=== PATIENT | female | born 1980 | race Caucasian/White ===

== ENCOUNTER → 2017-05-26 | Outpatient (CLI) | payer OTHER, MEDICARE ==
--- NOTE | 2017-05-26 14:00 | XR ---
EXAMINATION TYPE: XR KUB DATE OF EXAM: 05/26/2017 1:35 PM CLINICAL HISTORY: Right-sided kidney stones. TECHNIQUE: Single supine KUB image of the abdomen is obtained. COMPARISON: CT abdomen and pelvis March 16, 2017. FINDINGS: Previously visualized distal right ureter [address] right pelvis is not clearly s een on plain film. No definite nephrolithiasis. Some limitation due to prominent fecal material parti cularly in the right abdomen. Horizontal linear density posterior L4 level on x-ray is inferior to lo wer pole margin of left kidney. IMPRESSION: No definite nephrolithiasis currently.
== END | disposition home or self-care (01) ==
LOC: RADXRMAIN 13:24
PROVIDERS: ATTEND Urology
DX: N20.0 Calculus of kidney (principal)
CPT/HCPCS: 74018

== ENCOUNTER → 2017-06-03 | Outpatient (CLI) | payer OTHER, MEDICARE ==
--- NOTE | 2017-06-03 15:08 | CT ---
EXAMINATION TYPE: CT abdomen pelvis wo con DATE OF EXAM: 06/03/2017 COMPARISON: 03/16/2017 HISTORY: 36-year-old female right-sided flank pain, calculus of ureter CT DLP: 720.8 mGycm. Automated exposure control for dose reduction was used. TECHNIQUE: Contiguous axial scanning of the abdomen and pelvis without IV contrast. Coronal and sagit samina reconstructions performed. FINDINGS: Heart is normal size without pericardial effusion. Lung bases clear without pleural effusion. Liver enlarged measuring 23.7 cm craniocaudal. Possibly secondary to a Ursula's lobe. Postsurgical changes on the stomach, possible sleeve gastrectomy. Gallbladder, adrenal glands, kidneys, and pancreas show no gross abnormality by noncontrast CT. Splee n is upper limits of normal in size at 13.9 cm craniocaudal on coronal image 60. No dilated small bowel, free fluid, or free air. No hydronephrosis or evidence for nephrolithiasis. No suspicious calcifications seen along the course of either ureter. No mesenteric or retroperitoneal lymphadenopathy. Moderate stool burden. No pericolonic inflammatory change. Bladder under distended. A tampon is in place. Uterus and ovaries are visualized. Phleboliths in the right hemipelvis. No abnormal fluid collection in the pelvis or pelvic lymphadenopathy seen. Bones: Subarticular sclerosis and possible subtle erosions at the right greater than left SI joints. No osseous destructive process. IMPRESSION: 1. No evidence for nephrolithiasis, hydronephrosis, or calculus along either ureter. 2. Some degenerative changes at the SI joints. Correlate to exclude sacroiliitis. 3. Spleen upper limits of normal in size (13.9 cm).
== END | disposition home or self-care (01) ==
LOC: RADCTMAIN 13:17
PROVIDERS: ATTEND Physician Assistant
DX: N20.1 Calculus of ureter (principal); Z88.0 Allergy status to penicillin; Z88.5 Allergy status to narcotic agent
CPT/HCPCS: 74176

== ENCOUNTER → 2017-06-03 | Outpatient (CLI) | payer OTHER, MEDICARE ==
[2017-06-03 14:48] LABS: ALT 11 U/L (9-52); AST 15 U/L (14-36); Alkaline Phosphatase 82 U/L (38-126); Blood Urea Nitrogen 16 mg/dL (7-17)
== END | disposition home or self-care (01) ==
LOC: LABWHC1 13:49
PROVIDERS: ATTEND Pain Medicine Pain Medicine
DX: K71.9 Toxic liver disease, unspecified (principal); N14.2 Nephropathy induced by unspecified drug, medicament or biological substance; Z79.899 Other long term (current) drug therapy
CPT/HCPCS: 36415; 80171; 82565; 84075; 84450; 84460; 84520

== ENCOUNTER → 2023-07-29 | Outpatient (CLI) | payer OTHER, MEDICARE ==
[2023-07-29 14:08] VITALS: BP 148/89; PULSE 96; TEMP 98.8; BMI 40.0
--- NOTE | 2023-07-29 15:34 | P.HPBAR ---
Bariatric H&P - History & Physicial H&P Date: 07/29/23 History & Physicial: Visit/CC: new patient Patient initial contact: Initial weight: Initial weight in pounds: Height: 5 ft 5.5 in Initial BMI: Last weight: Current weight: 110.903 kg Current weight in pounds: 244.50 Current BMI: 40.0 [place] body weight (based on NIH guidelines): 57.833 kg Excess body weight loss: The patient is a 43 year-old F who presents for Bariatric Assessment. Has sleeve at [facility]. Severe uncontrolled reflux since sleeve. Surgery in 2016. Highest weight of 294 pounds. Lowest after surgery 155 pounds with depression.[place] too skinny. She wants to get to 175 pounds. Reflux is present. She takes protonix 40 mg at night. She has zyrtec. She needs high does therapy 40 mg BID. She has foods stuck in the chest. Recommend EGD. Past Medical History Past Medical History: Fibromyalgia, GERD/Reflux, Hypertension, Thyroid Disorder Additional Past Medical History / Comment(s): chronic back pain, osteoporosis, kidney stones, uti's/kidney infection. past ulcers,eczema,ovarain cysts, "cluster headaches in past", bronchits,seasonal allergies/sinus. iritis miracle eyes. ankylosing spondylitis, tachycardia, psoriatric arthritis History of Any Multi-Drug Resistant Organisms: None Reported Past Surgical History: Bariatric Surgery Additional Past Surgical History / Comment(s): D&C, multiple nerve blocks/radio frequency tx/epidaul inj., gastric sleeve 2016, abdominoplasty 2018 Past Anesthesia/Blood Transfusion Reactions: No Reported Reaction Past Psychological History: Anxiety, Depression Smoking Status: Never smoker Past Alcohol Use History: Occasional Additional Past Alcohol Use History / Comment(s): used to drink occ socially now rarely. denies any illicit drug use . Past Drug Use History: None Reported - Past Family History Mother Family Medical History: Diabetes Mellitus, Hypertension Additional Family Medical History / Comment(s): depression Father Family Medical History: Hypertension Additional Family Medical History / Comment(s): obesity, heart murmur Surgical - Exam Vital Signs Temp Pulse BP 98.8 F 96 148/89 07/29/23 13:31 07/29/23 13:31 07/29/23 13:31 Bariatric Checklist Checklist: Plan: Checklist: EGD: 1. Hiatal hernia: 2. H. Pylori: HgbA1c: Vitamin D: Smoking: Never smoker Primary care physician referral: Daniel Psychiatry clearance: Cardiology clearance: Sleep study: Diet journal: VTE risk score: VTE risk level: Rehab needs at discharge:
[2023-07-29 17:03] LABS: HCT 42.6 % (34.0-46.0); HGB 12.7 gm/dL (11.4-16.0); Hypochromasia Marked; MCH 26.7 pg (25.0-35.0); MCHC 29.9 g/dL (31.0-37.0); MCV 89.1 fL (80.0-100.0); Mean Platelet Volume 8.4; Platelet Count 152 k/uL (150-450); RBC 4.78 m/uL (3.80-5.40); RDW 13.3 % (11.5-15.5); WBC 6.1 k/uL (3.8-10.6)
[2023-07-29 17:08] LABS: Partial Thromboplastin Time 22.5 sec (22.0-30.0); Prothrombin Time 10.9 sec (10.0-12.5)
[2023-07-29 20:43] LABS: Prealbumin 15.4 mg/dL (18.0-42.0)
[2023-07-29 20:44] LABS: Urine Alcohol Negative (Negative); Urine Barbiturate Negative (Negative); Urine Cocaine Negative (Negative); Urine Methadone Negative (Negative); Urine Opiates Positive (Negative); Urine Phencyclidine Negative (Negative)
[2023-07-29 21:46] LABS: % Iron Saturation 9.33 (12.00-45.00); ALT 16 U/L (8-44); AST 22 U/L (13-35); Albumin 4.4 g/dL (3.8-4.9); Albumin/Globulin Ratio 1.57 Ratio (1.60-3.17); Alkaline Phosphatase 93 U/L (41-126); Blood Urea Nitrogen 8.6 mg/dL (9.0-27.0); Calcium 9.5 mg/dL (8.7-10.3); Carbon Dioxide 20.8 mmol/L (21.6-31.8); Chloride 103 mmol/L (96-109); Ferritin 37.9 ng/mL (10.0-291.0); Globulin 2.8 g/dL (1.6-3.3); Glucose 93 mg/dL (70-110); Iron 36 UG/DL (50-170); Magnesium 1.8 mg/dL (1.5-2.4); Phosphorus 3.6 mg/dL (2.4-5.1); Potassium 4.3 mmol/L (3.5-5.5); Sodium 138 mmol/L (135-145); Total Bilirubin 0.3 mg/dL (0.3-1.2); Total Iron Binding Capacity 386 UG/DL (228-460); Total Protein 7.2 g/dL (6.2-8.2)
[2023-07-30 12:51] LABS: Zinc, Serum 79 ug/dL (60-130)
[2023-07-31 07:27] LABS: Vitamin A 35 ug/dL (38-106)
[2023-07-31 12:48] LABS: Vit B1(Thiamine) 58 ug/L (38-122)
[2023-08-01 09:53] LABS: Anabasine Urine <2.0 ng/mL (<2.0)
[2023-08-04 13:49] LABS: Selenium 94 mcg/L (63-160)
== END ==
LOC: BARWHC3 12:29
PROVIDERS: ATTEND Surgery Plastic and Reconstructive Surgery
DX: E66.01 Morbid (severe) obesity due to excess calories (principal); D50.8 Other iron deficiency anemias; K90.89 Other intestinal malabsorption; E55.9 Vitamin D deficiency, unspecified; K74.1 Hepatic sclerosis; N19 Unspecified kidney failure; T56.894A Toxic effect of other metals, undetermined, initial encounter; Z88.0 Allergy status to penicillin; Z88.8 Allergy status to other drugs, medicaments and biological substances; Z88.5 Allergy status to narcotic agent; Z68.41 Body mass index [BMI] 40.0-44.9, adult
CPT/HCPCS: 80053; 80061; 80306; 80323; 82306; 82525; 82607; 82728; 82746; 83540; 83550; 83735; 83970; 84100; 84134; 84255; 84425; 84443; 84590; 84630; 85027; 85610; 85730; 93005; 99212

== ENCOUNTER → 2023-08-05 | Outpatient (CLI) | payer OTHER, MEDICARE ==
--- NOTE | 2023-08-05 08:50 | FL ---
EXAMINATION TYPE: FL barium swallow DATE OF EXAM: 08/05/2023 CLINICAL HISTORY: R13.10 DYSPHAGIA, UNSPECIFIED Contrast: Thin liquid barium. 41 sec FL time and 834.36 DAP The patient ingested contrast without difficulty or delay. Noted are postsurgical changes of gastric sleeve. There is no evidence for leak or obstruction. Contrast is noted within the duodenum. Th ere is moderate gastroesophageal reflux noted. IMPRESSION: Gastric sleeve changes with moderate gastroesophageal reflux without esophagitis.
== END | disposition home or self-care (01) ==
LOC: RADUSWWP 07:19
PROVIDERS: ATTEND Surgery Plastic and Reconstructive Surgery
DX: K21.00 Gastro-esophageal reflux disease with esophagitis, without bleeding (principal)
CPT/HCPCS: 74220

== ENCOUNTER 2023-08-17 06:31 | Day surgery (SDC) | payer OTHER, MEDICARE ==
[2023-08-13 10:53] VITALS: BMI 38.0
--- NOTE | 2023-08-17 06:16 | P.GSHP ---
History of Present Illness H&P Date: 08/17/23 CHIEF COMPLAINT: GERD HISTORY OF PRESENT ILLNESS: The patient is a 43-year-old female who presents reports gastroesophageal reflux disease following sleeve gastrectomy at outside facility. She reports dysphagia. Upper endoscopy was offered for further evaluation and management. PAST MEDICAL HISTORY: Please see list. PAST SURGICAL HISTORY: Please see list. MEDICATIONS: Please see list. ALLERGIES: Please see list. SOCIAL HISTORY: No illicit drug use FAMILY HISTORY: No reports of Crohn disease or ulcerative colitis. REVIEW OF ORGAN SYSTEMS: CONSTITUTIONAL: No reports of fevers or chills. GI: Denies any blood in stools or constipation. PHYSICAL EXAM: VITAL SIGNS: Stable GENERAL: Well-developed and pleasant in no acute distress. HEENT: No scleral icterus. Extraocular movements grossly intact. Moist buccal mucosa. NECK: Supple without lymphadenopathy. CHEST: Unlabored respirations. Equal bilateral excursions. CARDIOVASCULAR: Regular rate and rhythm. Distal 2+ pulses. ABDOMEN: Soft, nondistended. MUSCULOSKELETAL: No clubbing, cyanosis, or edema. ASSESSMENT: 1. Gastroesophageal reflux disease 2. Sleeve gastrectomy 3. Dysphagia PLAN: 1. Recommend proceeding with an upper endoscopy Past Medical History Past Medical History: Fibromyalgia, GERD/Reflux, Hypertension, Skin Disorder, Thyroid Disorder Additional Past Medical History / Comment(s): chronic back pain, osteoporosis, kidney stones, uti's/kidney infection, past ulcers, eczema, ovarian cysts, "cluster headaches in past", bronchitis, iritis miracle eyes, ankylosing spondylitis, tachycardia, psoriatric arthritis, pancreatitis post History of Any Multi-Drug Resistant Organisms: None Reported Past Surgical History: Bariatric Surgery Additional Past Surgical History / Comment(s): D&C, multiple nerve blocks/radio frequency tx/epidural inj., gastric sleeve 2016, abdominoplasty 2018 Past Anesthesia/Blood Transfusion Reactions: No Reported Reaction Past Psychological History: Anxiety, Depression Smoking Status: Never smoker Past Alcohol Use History: None Reported Additional Past Alcohol Use History / Comment(s): . Past Drug Use History: None Reported - Past Family History Mother Family Medical History: Diabetes Mellitus, Hypertension Additional Family Medical History / Comment(s): depression Father Family Medical History: Hypertension Additional Family Medical History / Comment(s): obesity, heart murmur Medications and Allergies Home Medications Medication Instructions Recorded Confirmed Type Amitriptyline HCl [Elavil] 50 mg PO HS 03/16/17 08/13/23 History Levothyroxine Sodium [Synthroid] 100 mcg PO DAILY 03/16/17 08/13/23 History Morphine Sulfate ER [Ms Contin] 45 mg PO QAM 03/16/17 08/13/23 History Pantoprazole [Protonix] 40 mg PO DAILY 03/16/17 08/13/23 History Vitamin B Complex 1 cap PO DAILY 03/16/17 08/13/23 History Vitamin D3 4500iu 4,500 unit PO DAILY 03/16/17 08/13/23 History tiZANidine HCL [Zanaflex] 6 mg PO BID PRN 03/16/17 08/13/23 History Ixekizumab [Taltz Autoinjector] 1 dose INJ DIRECTED 08/12/21 08/13/23 History Metoprolol Succinate [Toprol XL] 1 tab PO DAILY 08/12/21 08/13/23 History Pregabalin 100 mg PO DIRECTED 08/12/21 08/13/23 History buPROPion [Wellbutrin] 200 mg PO BID 08/12/21 08/13/23 History Ascorbic Acid [Vitamin C] 1,000 mg PO DAILY 07/29/23 08/13/23 History medroxyPROGESTERone [Depo-Provera] 150 mg IM QMONTHLY 07/29/23 08/13/23 History Morphine Sulfate ER [Ms Contin] 15 mg PO HS 08/13/23 08/13/23 History Allergies Allergy/AdvReac Type Severity Reaction Status Date / Time amoxicillin [From Augmentin] Allergy Unknown Verified 08/13/23 10:36 clavulanic acid Allergy Unknown Verified 08/13/23 10:36 [From Augmentin] codeine Allergy Unknown Verified 08/13/23 10:36
[2023-08-17] MEDS: LACTATED RINGERS 1,000 ML IV SCH (07:06)
[2023-08-17] MEDS ORDERED: PROPOFOL 10 MG/ML 20 ML VIAL IV ONE (07:28)
[2023-08-17] MEDS ORDERED: LIDOCAINE 2% (PF) 20 MG/ML 5 ML VIAL ONE (07:28)
[2023-08-17 07:32] VITALS: TEMP 97
--- NOTE | 2023-08-17 08:06 | P.PCN ---
Date of Procedure: 08/17/23 Description of Procedure: PREOPERATIVE DIAGNOSIS: Gastroesophageal reflux disease. Epigastric abdominal pain. POSTOPERATIVE DIAGNOSIS: Gastroesophageal reflux disease. Status post sleeve gastrectomy. Erosive esophagitis, chronic. Diaphragmatic hiatal hernia without obstruction. Chronic superficial gastritis. Presbyesophagus OPERATION: Esophagogastroduodenoscopy with cold forceps biopsies along the esophagus, duodenum, antrum. SURGEON: Shital Atkinson MD ANESTHESIA: MAC. INDICATIONS: The patient is a 43-year-old female who presents with a history of sleeve gastrectomy and gastroesophageal reflux disease. Benefits and risks of the procedure were described. Informed consent was obtained. DESCRIPTION: The patient was brought into the endoscopy suite and laid in the left lateral decubitus position. An Olympus gastroscope was passed along the posterior oropharynx down to the distal esophagus where the squamocolumnar junction was at 38 centimeters from the incisors remarkable for chronic erosive esophagitis, LA grade A without ulceration. The stomach was entered where she had a 2-cm hiatal hernia with a diaphragmatic hiatus found at 40 cm. The sleeve reservoir moderately large allowing easy retroflexion of the scope to view the lower esophageal valve. Chronic gastritis albeit mild was found along the antrum with cold biopsies obtained. The first through third portion of the duodenum was examined and biopsied. The scope again had easily retroflexed along the antrum. The stomach was desufflated. The patient tolerated the procedure well. FINDINGS: No acute ulceration found along her sleeve. Angulation along angularis incisura causing intermittent functional obstruction Squamocolumnar junction at 38 cm from the incisors. Diaphragmatic hiatus at 40 cm. Moderate large gastric reservoir with prior history of sleeve gastrectomy allowing easy retroflexion of the gastroscope to view the lower esophageal valve. Hiatal hernia 2 cm, sliding LA grade B erosive esophagitis. Biopsies obtained of the duodenum Moderate bile identified. Tertiary contractions consistent with presbyesophagus Chronic gastritis. RECOMMENDATIONS: Upper endoscopy as needed. May benefit from antireflux operation. Add Carafate 1 g twice daily for severity of reflux disease Plan - Discharge Summary Discharge Rx Participant: No New Discharge Prescriptions: New Sucralfate [Carafate] 1 gm PO BID #30 tablet Continue Vitamin D3 4500iu 4,500 unit PO DAILY Vitamin B Complex 1 cap PO DAILY Pantoprazole [Protonix] 40 mg PO DAILY Levothyroxine Sodium [Synthroid] 100 mcg PO DAILY Amitriptyline HCl [Elavil] 50 mg PO HS tiZANidine HCL [Zanaflex] 6 mg PO BID PRN PRN Reason: Pain Morphine Sulfate ER [Ms Contin] 30 mg PO QAM Metoprolol Succinate [Toprol XL] 1 tab PO DAILY Ixekizumab [Taltz Autoinjector] 1 dose INJ DIRECTED medroxyPROGESTERone [Depo-Provera] 150 mg IM QMONTHLY Pregabalin 100 mg PO DIRECTED buPROPion [Wellbutrin] 200 mg PO BID Ascorbic Acid [Vitamin C] 1,000 mg PO DAILY Morphine Sulfate ER [Ms Contin] 15 mg PO HS Discontinued Omeprazole [PriLOSEC] 10 mg PO DAILY Discharge Medication List Amitriptyline HCl [Elavil] 50 mg PO HS 03/16/17 [History] Levothyroxine Sodium [Synthroid] 100 mcg PO DAILY 03/16/17 [History] Morphine Sulfate ER [Ms Contin] 30 mg PO QAM 03/16/17 [History] Pantoprazole [Protonix] 40 mg PO DAILY 03/16/17 [History] Vitamin B Complex 1 cap PO DAILY 03/16/17 [History] Vitamin D3 4500iu 4,500 unit PO DAILY 03/16/17 [History] tiZANidine HCL [Zanaflex] 6 mg PO BID PRN 03/16/17 [History] Ixekizumab [Taltz Autoinjector] 1 dose INJ DIRECTED 08/12/21 [History] Metoprolol Succinate [Toprol XL] 1 tab PO DAILY 08/12/21 [History] Pregabalin 100 mg PO DIRECTED 08/12/21 [History] buPROPion [Wellbutrin] 200 mg PO BID 08/12/21 [History] Ascorbic Acid [Vitamin C] 1,000 mg PO DAILY 07/29/23 [History] medroxyPROGESTERone [Depo-Provera] 150 mg IM QMONTHLY 07/29/23 [History] Morphine Sulfate ER [Ms Contin] 15 mg PO HS 08/13/23 [History] Sucralfate [Carafate] 1 gm PO BID #30 tablet 08/17/23 [Rx] Follow up [facility]ment(s[facility]Ref[facility] [place] [facility] [place] [facility] Patient Instructions/Handouts: Hiatal Hernia (GEN), GERD (Gastroesophageal Reflux Disease) (DC) Discharge Disposition: HOME SELF-CARE
[2023-08-17 08:16] VITALS: BP 126/69; PULSE 81; RESP 16
== END 2023-08-17 08:29 | disposition home or self-care (01) ==
LOC: ORWHC2ENDO 06:31
PROVIDERS: ATTEND Surgery Plastic and Reconstructive Surgery
DX: K29.30 Chronic superficial gastritis without bleeding (principal); K21.00 Gastro-esophageal reflux disease with esophagitis, without bleeding; K22.10 Ulcer of esophagus without bleeding; K44.9 Diaphragmatic hernia without obstruction or gangrene; K22.89 Other specified disease of esophagus; Z98.84 Bariatric surgery status; Z79.899 Other long term (current) drug therapy; Z98.890 Other specified postprocedural states
CPT/HCPCS: 81025; 88305; 43239; J2704; J2001

== ENCOUNTER → 2023-09-02 | Outpatient (CLI) | payer OTHER, MEDICARE ==
[2023-09-02 14:37] VITALS: BP 146/91; PULSE 108; RESP 16; TEMP 98.5; BMI 37.8
--- NOTE | 2023-09-02 15:04 | P.BASOAP ---
Subjective Progress Note Date: 09/02/23 DATE OF SERVICE: 09/02/23 CHIEF COMPLAINT: Status post sleeve gastrectomy HISTORY OF PRESENT ILLNESS: Shayy Lamas is a 43-year-old female who is status post sleeve gastrectomy 2016, 8 years ago. She has worsening reflux disease despite carafate and protonix. She has known history of sludge in her gallbladder. Gallbladder is present. She reports family members with gallbladder problem. She has 13 pounds in 1 month. She had pancreatitis. She presents due to abdominal pain with sleeve gastrectomy. At height of 5 feet 5.5 inches, her ideal body weight is 149 pounds. Her body mass index is 37.9. She is 82 pounds overweight. PAST MEDICAL HISTORY: 1. Morbid obesity due to excess calories 2. Body mass index of 38.0, initial 3. Hypothyroidism 4. Hypertensive heart disease 5. Depressive disorder 6. Gastroesophageal reflux disease 7. Chronic pain syndrome 8. Generalized anxiety disorder 9. Fibromyalgia 10. Chronic back pain 11. Osteoporosis 12. Kidney stone 13. Gastric ulcers 14. Eczema 15. Cluster migraine headache 16. Bronchitis 17. Ankylosing spondylitis 18. Psoriatic arthritis 19. Pancreatitis PAST SURGICAL HISTORY: 1. Dilatation and curettage 2. Epidural injection 3. Status post sleeve gastrectomy, 2015 4. Abdominoplasty 2017 5. Radiofrequency ablation HOME MEDICATIONS: Home Medications Medication Instructions Recorded Confirmed Type Amitriptyline HCl [Elavil] 50 mg PO HS 03/16/17 08/13/23 History Levothyroxine Sodium [Synthroid] 100 mcg PO DAILY 03/16/17 08/13/23 History Morphine Sulfate ER [Ms Contin] 45 mg PO QAM 03/16/17 08/13/23 History Pantoprazole [Protonix] 40 mg PO DAILY 03/16/17 08/13/23 History Vitamin B Complex 1 cap PO DAILY 03/16/17 08/13/23 History Vitamin D3 4500iu 4,500 unit PO DAILY 03/16/17 08/13/23 History tiZANidine HCL [Zanaflex] 6 mg PO BID PRN 03/16/17 08/13/23 History Ixekizumab [Taltz Autoinjector] 1 dose INJ DIRECTED 08/12/21 08/13/23 History Metoprolol Succinate [Toprol XL] 1 tab PO DAILY 08/12/21 08/13/23 History Pregabalin 100 mg PO DIRECTED 08/12/21 08/13/23 History buPROPion [Wellbutrin] 200 mg PO BID 08/12/21 08/13/23 History Ascorbic Acid [Vitamin C] 1,000 mg PO DAILY 07/29/23 08/13/23 History medroxyPROGESTERone [Depo-Provera] 150 mg IM QMONTHLY 07/29/23 08/13/23 History Morphine Sulfate ER [Ms Contin] 15 mg PO HS 08/13/23 08/13/23 History ALLERGIES: Allergies Allergy/AdvReac Type Severity Reaction Status Date / Time amoxicillin [From Augmentin] Allergy Unknown Verified 08/13/23 10:36 clavulanic acid Allergy Unknown Verified 08/13/23 10:36 [From Augmentin] codeine Allergy Unknown Verified 08/13/23 10:36 SOCIAL HISTORY: Denies past tobacco use. FAMILY HISTORY: No family history of ulcerative colitis disease or Crohn's disease. Family history of morbid obesity. No lupus in the family. No reports of stomach or esophageal cancer. REVIEW OF ORGAN SYSTEMS: CONSTITUTIONAL: HEENT: Denies any active troubles with vision or hearing. Has iritis. ENDOCRINE: Has hypothyroidism. No diabetes. CARDIOVASCULAR: Has hypertensive heart disease. RESPIRATORY: Has asthma. Has chronic obstructive pulmonary disease. GASTROINTESTINAL: Denies any bright red blood per rectum. No diarrhea. No constipation. Has gastroesophageal reflux disease. GENITOURINARY: Has bladder urgency. No recent blood in urine. Has kidney stones. MUSCULOSKELETAL: Has lower back pain and joint pain. Has osteoarthritis of the knees. NEURO: No seizure disorders. Has neuropathy. Has cluster migraine headaches. Has generalized anxiety disorder. PSYCH: Has depression. No suicidal ideation. RHEUMATOLOGIC: No lupus. Has psoriatic arthritis. HEMATOLOGIC: Denies any abnormal bleeding or bruising. SKIN: Has eczema. PHYSICAL EXAM: VITAL SIGNS: Height 5 foot 5.5 inches, weight 231 pounds. BMI 37.9 Vital Signs Temp 98.5 F 09/02/23 14:11 Pulse 108 H 09/02/23 14:11 Resp 16 09/02/23 14:11 BP 146/91 09/02/23 14:11 Pulse Ox FiO2 GENERAL: Well-developed in no acute distress. HEENT: No scleral icterus. Extraocular movements grossly intact. Hears conversational speech. No nasal drainage. NECK: Supple without lymphadenopathy. CHEST: Nonlabored respirations with equal bilateral excursions. CARDIOVASCULAR: Tachycardia. Distal 2+ pulses. ABDOMEN: Obese, soft, nontender, nondistended. MUSCULOSKELETAL: No clubbing, cyanosis. Gross strength 5/5 distal lower extremities. NEURO: No focal or lateralizing signs. Cranial nerves 2 through 12 grossly within normal limits. PSYCH: Appropriate affect. Alert and oriented to person, place and time. SKIN: Good skin turgor. Well perfused. LABS: Reviewed. Iron is low. Prealbumin low. Triglycerides elevated. Vitamin A low. Vitamin D low. Urine drug screen opiate positive. STUDIES: Barium swallow independently reviewed from July 2023 demonstrates presbyesophagus. No moderate or large hiatal hernia. This is my independent interpretation. REPORTS: Esophagram from July 2023 demonstrates moderate to severe gastroesophageal reflux disease EKG: Reviewed demonstrates borderline EKG due to low voltage QRS. She has worsening symptoms EGD FINDINGS: No acute ulceration found along her sleeve. Angulation along angularis incisura causing intermittent functional obstruction Squamocolumnar junction at 38 cm from the incisors. Diaphragmatic hiatus at 40 cm. Moderate large gastric reservoir with prior history of sleeve gastrectomy allowing easy retroflexion of the gastroscope to view the lower esophageal valve. Hiatal hernia 2 cm, sliding LA grade B erosive esophagitis. Biopsies obtained of the duodenum Moderate bile identified. Tertiary contractions consistent with presbyesophagus Chronic gastritis. Final Pathologic Diagnosis A. DUODENUM, BIOPSY: Benign small bowel mucosa with intact villous architecture, negative for histopathologic abnormality. B. GASTRIC ANTRUM, BIOPSY: Mild chronic gastritis. Helicobacter pylori organisms are not identified on routine H+E sections. C. ESOPHAGUS, BIOPSY: Mild chronic esophagitis. Intramucosal eosinophils are not identified. ASSESSMENT: 1. Morbid obesity due to excess calories 2. Body mass index of 38.0, initial 3. Osteoarthritis of the knees. 4. Osteoarthritis of the lower back. 5. Hypertensive heart disease. 6. Gastroesophageal reflux disease 7. Hyperlipidemia 8. Obstructive sleep apnea 9. Diabetes type 2, insulin dependent 10. Chronic obstructive pulmonary disease 11. Glaucoma 12. Neuropathy 13. Asthma 14. Atrial fibrillation 15. Need for colonoscopy screening 16. Esophageal dysmotility PLAN: 1. Recommend ultrasound of gallbladder and HIDA of scan due to worsening gastroesophageal reflux disease as well as epigastric abdominal pain in the presence of moderate weight loss 2. May benefit from assessment for conversion from sleeve to gastric bypass. Objective - Vital Signs Vital signs: Vital Signs Temp 98.5 F 09/02/23 14:11 Pulse 108 H 09/02/23 14:11 Resp 16 09/02/23 14:11 BP 146/91 09/02/23 14:11 Pulse Ox FiO2 Intake & Output 09/01/23 09/02/23 09/02/23 18:59 06:59 18:59 Weight 104.78 kg Assessment/Plan Plan: Date: 09/02/23 Initial Weight: 110.818 kg Initial BMI: 40.0 Current Weight: 104.78 kg Current BMI: 37.8 Type of Surgery: Vertical Sleeve Gastrectomy Total Volume in Band: Previous Volume: Volume Removed: Volume Added: Band Size:
== END ==
LOC: BARWHC3 13:47
PROVIDERS: ATTEND Surgery Plastic and Reconstructive Surgery
DX: E66.01 Morbid (severe) obesity due to excess calories (principal); M17.0 Bilateral primary osteoarthritis of knee; M47.816 Spondylosis without myelopathy or radiculopathy, lumbar region; I11.9 Hypertensive heart disease without heart failure; K21.9 Gastro-esophageal reflux disease without esophagitis; E78.5 Hyperlipidemia, unspecified; G47.33 Obstructive sleep apnea (adult) (pediatric); E11.40 Type 2 diabetes mellitus with diabetic neuropathy, unspecified; J44.89 Other specified chronic obstructive pulmonary disease; H42 Glaucoma in diseases classified elsewhere; H40.9 Unspecified glaucoma; I48.91 Unspecified atrial fibrillation; K22.4 Dyskinesia of esophagus; Z79.4 Long term (current) use of insulin; Z68.37 Body mass index [BMI] 37.0-37.9, adult; Z90.3 Acquired absence of stomach [part of]; Z98.84 Bariatric surgery status; Z79.899 Other long term (current) drug therapy; Z88.0 Allergy status to penicillin; Z88.8 Allergy status to other drugs, medicaments and biological substances; Z88.5 Allergy status to narcotic agent
CPT/HCPCS: 99211

== ENCOUNTER → 2023-09-16 | Outpatient (CLI) | payer OTHER, MEDICARE ==
--- NOTE | 2023-09-16 08:56 | US ---
EXAMINATION TYPE: US gallbladder DATE OF EXAM: 09/16/2023 COMPARISON: 06/03/2017 CLINICAL INDICATION: Female, 43 years old with history of K85.90 ACUT PANCRE; nausea exam limitations due to bowel gas. TECHNIQUE: Multiple sonographic images of the right upper quadrant are obtained. FINDINGS: EXAM MEASUREMENTS: Liver Length: 16.4 cm Gallbladder Wall: .4 cm CBD: .6 cm Right Kidney: 11 x 4.6 x 4.5 cm UI DEVELOPER WITH ANGULAR JS NOTES: Pancreas: Obscured by bowel gas Liver: Increased attenuation limited had to scan intracostally Gallbladder: Stones visualized Evidence for sonographic Hurley's sign: no CBD: upper limits Right Kidney: No hydronephrosis or masses seen IMPRESSION: 1. No evidence for acute process. 2. Hepatic steatosis. 3. Cholelithiasis.
== END | disposition home or self-care (01) ==
LOC: RADUSWWP 07:14
PROVIDERS: ATTEND Surgery Plastic and Reconstructive Surgery
DX: K76.0 Fatty (change of) liver, not elsewhere classified (principal); K80.20 Calculus of gallbladder without cholecystitis without obstruction; K85.90 Acute pancreatitis without necrosis or infection, unspecified
CPT/HCPCS: 76705

== ENCOUNTER 2023-11-24 22:00 | Inpatient (IN) | payer OTHER, MEDICARE ==
[~2023-11-24 22:00] MED LIST: HYDROmorphone 0.5 MG/0.5 ML SYRINGE ONE; HYDROmorphone 1 MG/ML 1 ML SYRINGE ONE; ONDANSETRON 4 MG/2 ML VIAL ONE
[2023-11-24] MEDS ORDERED: cefTRIAXone 2 GM VIAL ONE (22:26)
[2023-11-24] MEDS ORDERED: metroNIDAZOLE-NS PMX 100 ML ONE (22:49)
[2023-11-24] MEDS ORDERED: HYDROmorphone 0.5 MG/0.5 ML SYRINGE ONE (23:04)
[2023-11-25] MEDS ORDERED: HYDROmorphone 1 MG/ML 1 ML SYRINGE ONE ×6 (01:52→20:46)
[2023-11-25] MEDS ORDERED: ONDANSETRON 4 MG/2 ML VIAL ONE (07:19)
[2023-11-25] MEDS ORDERED: metroNIDAZOLE-NS PMX 100 ML ONE ×2 (07:20→20:18)
[2023-11-25] MEDS ORDERED: cefTRIAXone 2 GM VIAL ONE (07:20)
[2023-11-25] MEDS ORDERED: ACETAMINOPHEN TAB 325 MG TAB ONE (07:29)
[2023-11-25] MEDS ORDERED: [UNRECOGNIZED DRUG - OTHER] IVPB ONE (17:04)
[2023-11-25] MEDS ORDERED: LEVOFLOXACIN 500 MG IVPB ONE (17:04)
[2023-11-25] MEDS ORDERED: SODIUM CHLORIDE 0.9% 1,000 ML BAG ONE ×2 (18:20→23:59)
[2023-11-25] MEDS ORDERED: SODIUM CHLORIDE 0.9% 50 ML BAG ONE (23:59)
[2023-11-25] MEDS ORDERED: ACETAMINOPHEN IV (For NPO) 1,000 MG/100 ML VIAL ONE (23:59)
[2023-11-25] MEDS ORDERED: HEPARIN SODIUM,PORCINE 5,000 UNIT/ML 1 ML VIAL ONE (23:59)
[2023-11-25] MEDS ORDERED: PANTOPRAZOLE 40 MG/10 ML VIAL ONE (23:59)
[2023-11-25] MEDS ORDERED: METOPROLOL SUCCINATE (ER) 50 MG TAB.ER.24H PO ONE (23:59)
[2023-11-25] MEDS ORDERED: SODIUM CHLORIDE 0.9% 500 ML BAG ONE (23:59)
[2023-11-25] MEDS ORDERED: AMITRIPTYLINE HCL 50 MG TAB ONE (23:59)
[2023-11-26] MEDS ORDERED: HYDROmorphone 1 MG/ML 1 ML SYRINGE ONE ×2 (02:57→09:46)
[2023-11-26] MEDS ORDERED: LEVOTHYROXINE 100 MCG TAB ONE (05:26)
[2023-11-26] MEDS ORDERED: metroNIDAZOLE-NS PMX 100 ML ONE ×3 (05:33→20:42)
[2023-11-26] MEDS ORDERED: GABAPENTIN 100 MG CAP ONE ×2 (09:45→20:42)
[2023-11-26] MEDS ORDERED: MORPHINE SULFATE ER 15 MG TABLET PO ONE ×2 (10:10→17:25)
[2023-11-26] MEDS ORDERED: PANTOPRAZOLE 40 MG/10 ML VIAL ONE ×2 (10:10→20:41)
[2023-11-26] MEDS ORDERED: HEPARIN SODIUM,PORCINE 5,000 UNIT/ML 1 ML VIAL ONE ×2 (10:10→20:41)
[2023-11-26] MEDS ORDERED: METOPROLOL TARTRATE 50 MG TAB ONE (20:48)
[2023-11-26] MEDS ORDERED: MORPHINE SULFATE ER 30 MG TABLET PO ONE (20:48)
[2023-11-26] MEDS ORDERED: METOPROLOL SUCCINATE (ER) 50 MG TAB.ER.24H PO ONE (23:59)
[2023-11-26] MEDS ORDERED: AMITRIPTYLINE HCL 50 MG TAB ONE (23:59)
[2023-11-27] MEDS ORDERED: HYDROmorphone 1 MG/ML 1 ML SYRINGE ONE (00:07)
[2023-11-27] MEDS ORDERED: FLUCONAZOLE 150 MG TAB ONE (01:10)
[2023-11-27] MEDS ORDERED: metroNIDAZOLE-NS PMX 100 ML ONE (05:26)
[2023-11-27] MEDS ORDERED: LEVOTHYROXINE 100 MCG TAB ONE (05:26)
[2023-11-27] MEDS ORDERED: MORPHINE SULFATE ER 15 MG TABLET PO ONE ×2 (08:04→16:37)
[2023-11-27] MEDS ORDERED: HEPARIN SODIUM,PORCINE 5,000 UNIT/ML 1 ML VIAL ONE (20:42)
[2023-11-27] MEDS ORDERED: PROPOFOL 10 MG/ML 20 ML VIAL IV ONE (21:00)
[2023-11-27] MEDS ORDERED: ceFAZolin 1 GM/50 ML BAG (PMX) ONE (21:00)
[2023-11-27] MEDS ORDERED: LIDOCAINE 1% INJ 10MG/ML (20 ML MDV) ONE (21:00)
[2023-11-27] MEDS ORDERED: ONDANSETRON 4 MG/2 ML VIAL ONE (21:00)
[2023-11-27] MEDS ORDERED: GLYCOPYRROLATE 0.2 MG/ML 2 ML VIAL ONE (21:00)
[2023-11-27] MEDS ORDERED: fentaNYL (PF) 50 MCG/ML 2 ML AMP ONE (21:00)
[2023-11-27] MEDS ORDERED: HYDROmorphone (PF) 1 MG/ML ONE (21:00)
[2023-11-27] MEDS ORDERED: ESMOLOL 100 MG/10 ML VIAL ONE (21:00)
[2023-11-27] MEDS ORDERED: KETOROLAC 15 MG/ML 1 ML VIAL ONE (21:00)
[2023-11-27] MEDS ORDERED: NEOSTIGMINE 1 MG/ML 10 ML VIAL ONE (21:00)
[2023-11-27] MEDS ORDERED: DEXAMETHASONE SOD PHOSPHATE 4 MG/ML 1 ML VIAL ONE (21:00)
[2023-11-27] MEDS ORDERED: MIDAZOLAM 2 MG/2 ML VIAL ONE (21:00)
[2023-11-27] MEDS ORDERED: INDOCYANINE GREEN 25 MG VIAL IV ONE (21:00)
[2023-11-27] MEDS ORDERED: METOPROLOL TARTRATE 5 MG/5 ML VIAL IVP ONE (21:00)
[2023-11-27] MEDS ORDERED: SUCCINYLCHOLINE CHLORIDE 200 MG/10 ML VIAL IV ONE (21:00)
[2023-11-27] MEDS ORDERED: ROCURONIUM 10 MG/ML (5 ML VIAL) IV ONE (21:00)
[2023-11-27] MEDS ORDERED: LACTATED RINGERS 1,000 ML BAG ONE (21:15)
[2023-11-27] MEDS ORDERED: LIDOCAINE 1%-EPI 1:100,000 20 ML VIAL ONE (21:15)
[2023-11-28] MEDS ORDERED: HYDROmorphone 1 MG/ML 1 ML SYRINGE ONE ×2 (01:06→06:54)
[2023-11-28] MEDS ORDERED: metroNIDAZOLE-NS PMX 100 ML ONE ×3 (05:55→20:22)
[2023-11-28] MEDS ORDERED: LEVOTHYROXINE 100 MCG TAB ONE (05:58)
[2023-11-28] MEDS ORDERED: HEPARIN SODIUM,PORCINE 5,000 UNIT/ML 1 ML VIAL ONE ×2 (09:37→20:22)
[2023-11-28] MEDS ORDERED: PANTOPRAZOLE 40 MG/10 ML VIAL ONE ×2 (09:37→20:22)
[2023-11-28] MEDS ORDERED: GABAPENTIN 100 MG CAP ONE ×2 (09:38→20:22)
[2023-11-28] MEDS ORDERED: oxyCODONE ER 15 MG TAB.ER.12H PO ONE (09:52)
[2023-11-28] MEDS ORDERED: MORPHINE SULFATE ER 15 MG TABLET PO ONE ×2 (10:09→16:38)
[2023-11-28] MEDS ORDERED: HYDROcodone/APAP 5-325MG 1 EACH TAB ONE ×2 (14:31→23:23)
[2023-11-28] MEDS ORDERED: KETOROLAC 15 MG/ML 1 ML VIAL ONE (20:21)
[2023-11-28] MEDS ORDERED: MORPHINE SULFATE ER 30 MG TABLET PO ONE (20:22)
[2023-11-29] MEDS ORDERED: metroNIDAZOLE-NS PMX 100 ML ONE (07:46)
[2023-11-29] MEDS ORDERED: MORPHINE SULFATE ER 15 MG TABLET PO ONE (10:34)
[2023-11-29] MEDS ORDERED: HEPARIN SODIUM,PORCINE 5,000 UNIT/ML 1 ML VIAL ONE (10:34)
[2023-11-29] MEDS ORDERED: PANTOPRAZOLE 40 MG/10 ML VIAL ONE (10:34)
[2023-11-29] MEDS ORDERED: GABAPENTIN 100 MG CAP ONE (10:35)
--- NOTE | 2023-12-27 12:06 | US ---
Site ID [facility] Shayy Samuel ID [id number] Age/Gender: 43Y, O Order # N/A Procedure US gallbladder Date 11/24/2023 7:58:00 PM INDICATION: Patient age: [age] year old; Reason for study: Abdominal pain, history of pancreatitis and gallstones COMPARISON: None, please note PACS Production downtime occurred during the radiologist interpretation of these images with limited priors/reports.. TECHNIQUE: Multiple grayscale and color doppler ultrasound images of the right upper abdomen obtained utilizing transabdominal imaging. FINDINGS: PANCREAS: Limited evaluation of the pancreas secondary to bowel. LIVER: The liver demonstrates a normal echotexture. There is no evidence of dilated ducts, cystic structures , or solid mass. Measures up to 16.0 cm. GALLBLADDER: The gallbladder demonstrates cholelithiasis with minimal wall thickening and questionable trace peric holecystic fluid. The common duct is obscured by overlying bowel gas. RIGHT KIDNEY: The right kidney measures 11.3 x 4.7 x 5.0 cm, without evidence of hydronephrosis, shadowing calculus , or contour deforming solid mass. Renal parenchymal echogenicity is within normal limits. IMPRESSION: Findings equivocal for acute cholecystitis with gallstones, minimal wall thickening, and questionable pericholecystic fluid. Correlate clinically. Consider further evaluation with nuclear medicine HIDA scan.
--- NOTE | 2023-12-29 11:33 | XR ---
Site ID [facility] Patient Shayy Lamas L ID [id number] Order # Procedure XR chest 2V EXAMINATION TYPE: XR chest 2V DATE OF EXAM: 11/26/2023 8:24 AM CLINICAL INDICATION: Congestive heart failure COMPARISON: THIS EXAM WAS READ DURING PACS DOWNTIME, NO PRIORS AVAILABLE. TECHNIQUE: XR chest 2V Frontal view of the chest. FINDINGS: Lungs/Pleura: Right perihilar airspace opacities with obscuration of right heart border.. There is no evidence of pleural effusion, focal consolidation, or pneumothorax. Pulmonary vascularity: Pulmonary vascular congestion. Heart/mediastinum: Cardiomediastinal silhouette is enlarged. Musculoskeletal: No acute osseous pathology. IMPRESSION: 1. Low lung volumes with a generalized hazy appearance which could represent atelectasis versus pulm onary edema correlate with serum BNP. 2. Right perihilar opacities consider short-term follow-up with deep inspiration radiograph to ensur e resolution.
== END 2023-11-29 16:40 | disposition home or self-care (01) | DRG 418 ==
LOC: 4SSUR 22:00 → DISRECOVER 22:00 → UNDODISIN 22:00 → UNDOADMIN 22:00 → 4SSUR 11-25 22:00 → UNDOADMIN 11-25 22:00 → UNDODISIN 11-29 16:40
PROVIDERS: ADMIT Physician Assistant; ATTEND Physician Assistant
PROC: 8E0W4CZ Robotic Assisted Procedure of Trunk Region, Percutaneous Endoscopic Approach (ICD-10-PCS; principal; 2023-11-27)
PROC: 0FT44ZZ Resection of Gallbladder, Percutaneous Endoscopic Approach (ICD-10-PCS; principal; 2023-11-27)
DX: K80.13 Calculus of gallbladder with acute and chronic cholecystitis with obstruction (principal); K82.1 Hydrops of gallbladder; K82.A1 Gangrene of gallbladder in cholecystitis; I10 Essential (primary) hypertension; E03.9 Hypothyroidism, unspecified; G89.4 Chronic pain syndrome; M79.7 Fibromyalgia; Z79.899 Other long term (current) drug therapy; Z88.0 Allergy status to penicillin; Z88.5 Allergy status to narcotic agent
CPT/HCPCS: 71046; 76705; 87040; 88304; 96361; 96365; 96375; 99285

== ENCOUNTER 2024-06-03 07:26 | Day surgery (SDC) | payer OTHER, MEDICARE ==
[2024-06-01 09:27] VITALS: BMI 36.8
--- NOTE | 2024-06-03 06:28 | P.GSHP ---
History of Present Illness H&P Date: 06/03/24 CHIEF COMPLAINT: History of intra-abdominal adhesions HISTORY OF PRESENT ILLNESS: The patient is a 43-year-old female who presents with history of intra-abdominal adhesions from multiple prior surgeries including increasing abdominal pain. She now presents for diagnostic laparoscopy including lysis of adhesions. PAST MEDICAL HISTORY: Please see list. PAST SURGICAL HISTORY: Please see list. MEDICATIONS: Please see list. ALLERGIES: Please see list. SOCIAL HISTORY: No illicit drug use FAMILY HISTORY: No reports of Crohn disease or ulcerative colitis. REVIEW OF ORGAN SYSTEMS: CONSTITUTIONAL: Denies any fever or chills. HEENT: Denies any trouble with vision, hearing or nosebleeds. No difficulty swallowing. LYMPHATIC: The patient denies any lumps and bumps around the neck. ENDOCRINE: Denies any thyroid disorders. Denies any blood sugar glucose intolerance. RESPIRATORY: Denies pneumonia. Denies any troubles with breathing or dyspnea on exertion. CARDIOVASCULAR: Prior chest pain, palpitations, or recent heart attacks. GASTROINTESTINAL: Has heart burn, constipation or bright red blood per rectum. History of sleeve gastrectomy and cholecystectomy. GENITOURINARY: Denies any blood in urine or increased urinary frequency. MUSCULOSKELETAL: Has back pain, stiffness, joint arthritis. NEUROLOGIC: Has numbness or tingling along the distal extremities. No seizure disorders or headaches. PSYCHIATRIC: Denies depression or suidical ideation. HEMATOLOGIC: Denies any abnormal bleeding or bruising. BREASTS: Denies any breast lumps, pain or nipple discharge. PHYSICAL EXAM: GENERAL: Well-developed pleasant male in no acute distress. HEENT: No scleral icterus. Extraocular movements grossly intact. Moist buccal mucosa. NECK: Supple without lymphadenopathy. CHEST: Unlabored respirations. Equal bilateral excursions. CARDIOVASCULAR: Regular rate and rhythm. Distal 2+ pulses. ABDOMEN: Soft, nondistended. Tender generalized abdominal pain. MUSCULOSKELETAL: No clubbing, cyanosis, or edema. SKIN: Well perfused. PSYCH: Alert and oriented to self, place and time ASSESSMENT: 1. Diffuse abdominal pain. 2. History of multiple abdominal surgeries. 3. Intra-abdominal adhesions. PLAN: 1. Robotic lysis of adhesions were described in detail including risk of injury to the intestine, need for further surgery, and open technique. 2. DVT prophylaxis. 3. Antibiotic prophylaxis. Past Medical History Past Medical History: Fibromyalgia, GERD/Reflux, Hypertension, Thyroid Disorder Additional Past Medical History / Comment(s): chronic back pain, osteoporosis, kidney stones, uti's/kidney infection. past ulcers,eczema,ovarain cysts, "cluster headaches in past", bronchits,seasonal allergies/sinus. iritis miracle eyes. ankylosing spondylitis, tachycardia, psoriatric arthritis History of Any Multi-Drug Resistant Organisms: None Reported Past Surgical History: Bariatric Surgery, Cholecystectomy Additional Past Surgical History / Comment(s): D&C, multiple nerve blocks/radio frequency tx/epidural inj., gastric sleeve 2016, abdominoplasty 2018 Past Anesthesia/Blood Transfusion Reactions: No Reported Reaction Smoking Status: Never smoker - Past Family History Mother Family Medical History: Diabetes Mellitus, Hypertension Additional Family Medical History / Comment(s): depression Father Family Medical History: Hypertension Additional Family Medical History / Comment(s): obesity, heart murmur Medications and Allergies Home Medications Medication Instructions Recorded Confirmed Type Amitriptyline HCl [Elavil] 50 mg PO HS 03/16/17 06/01/24 History Levothyroxine Sodium [Synthroid] 100 mcg PO DAILY 03/16/17 06/01/24 History Morphine Sulfate ER [Ms Contin] 30 mg PO HS 03/16/17 06/01/24 History Pantoprazole [Protonix] 40 mg PO DAILY 03/16/17 06/01/24 History Vitamin B Complex 1 cap PO DAILY 03/16/17 06/01/24 History Vitamin D3 4500iu 4,500 unit PO DAILY 03/16/17 06/01/24 History tiZANidine HCL [Zanaflex] 6 mg PO BID PRN 03/16/17 06/01/24 History Ixekizumab [Taltz Autoinjector] 1 dose INJ QMONTHLY 08/12/21 06/01/24 History Metoprolol Succinate [Toprol XL] 1 tab PO DAILY 08/12/21 06/01/24 History Pregabalin 100 mg PO BID 08/12/21 06/01/24 History buPROPion [Wellbutrin] 200 mg PO BID 08/12/21 06/01/24 History Ascorbic Acid [Vitamin C] 1,000 mg PO DAILY 07/29/23 06/01/24 History medroxyPROGESTERone [Depo-Provera] 150 mg IM QMONTHLY 07/29/23 06/01/24 History Morphine Sulfate ER [Ms Contin] 15 mg PO DAILY 08/13/23 06/01/24 History Allergies Allergy/AdvReac Type Severity Reaction Status Date / Time amoxicillin [From Augmentin] Allergy HIVES Verified 06/01/24 09:12 clavulanic acid Allergy HIVES Verified 06/01/24 09:12 [From Augmentin] codeine Allergy VOMITTING Verified 06/01/24 09:12
[~2024-06-03 07:26] MED LIST changes: -HYDROmorphone 0.5 MG/0.5 ML SYRINGE ONE; -HYDROmorphone 1 MG/ML 1 ML SYRINGE ONE; -ONDANSETRON 4 MG/2 ML VIAL ONE; +Pre Op ABX Message 1 EACH MISC MISCELLANE ONE
[2024-06-03] MEDS: IV FLUID CONTINUATION 1,000 ML IV ONE (08:00)
[2024-06-03] MEDS: LIDOCAINE 1% (10MG/ML) FOR IV START INTRADERMA STA (08:00)
[2024-06-03] MEDS: LACTATED RINGERS 1,000 ML IV SCH (08:00)
[2024-06-03] MEDS: ONDANSETRON 4 MG/2 ML VIAL IVP STA (08:27)
[2024-06-03] MEDS: DEXAMETHASONE SOD PHOSPHATE 4 MG/ML 1 ML VIAL IVP STA (08:28)
[2024-06-03] MEDS: fentaNYL (PF) 50 MCG/ML 2 ML AMP IV PRN (08:32)
[2024-06-03] MEDS: MIDAZOLAM 2 MG/2 ML VIAL IV PRN (08:32)
[2024-06-03] MEDS: ACETAMINOPHEN TAB 500 MG TAB PO STA (08:58)
[2024-06-03] MEDS: FAMOTIDINE 20 MG/2 ML VIAL IV STA (08:59)
[2024-06-03] MEDS: HEPARIN SODIUM,PORCINE 5,000 UNIT/ML 1 ML VIAL SQ STA (08:59)
[2024-06-03] MEDS: SCOPOLAMINE 1 MG/72 HR PATCH TRANSDERM STA (08:59)
[2024-06-03] MEDS ORDERED: DEXAMETHASONE SOD PHOSPHATE 4 MG/ML 1 ML VIAL ONE (09:15)
[2024-06-03] MEDS ORDERED: PROPOFOL 10 MG/ML 20 ML VIAL IV ONE (09:15)
[2024-06-03] MEDS ORDERED: SUGAMMADEX SODIUM 100 MG/ML SYR IV ONE (09:15)
[2024-06-03] MEDS ORDERED: SUCCINYLCHOLINE CHLORIDE 200 MG/10 ML VIAL IV ONE (09:15)
[2024-06-03] MEDS ORDERED: fentaNYL (PF) 50 MCG/ML 2 ML AMP ONE (09:15)
[2024-06-03] MEDS ORDERED: NEOSTIGMINE 1 MG/ML 10 ML VIAL ONE (09:15)
[2024-06-03] MEDS ORDERED: LIDOCAINE 1% INJ 10MG/ML (20 ML MDV) ONE (09:15)
[2024-06-03] MEDS ORDERED: PHENYLEPHRINE-0.9% NACL SYG 1,000 MCG/10 ML SYRINGE ONE (09:15)
[2024-06-03] MEDS ORDERED: GLYCOPYRROLATE 0.2 MG/ML 2 ML VIAL ONE (09:15)
[2024-06-03] MEDS ORDERED: ROCURONIUM 10 MG/ML (5 ML VIAL) IV ONE (09:15)
[2024-06-03] MEDS ORDERED: ROPIVACAINE 5 MG/ML 30 ML VIAL ONE (09:15)
[2024-06-03] MEDS ORDERED: KETAMINE HCL IN 0.9 % NACL 50 MG/5 ML SYRINGE ONE (09:15)
[2024-06-03] MEDS ORDERED: MIDAZOLAM 2 MG/2 ML VIAL ONE (09:15)
[2024-06-03] MEDS: LIDOCAINE 1%-EPI 1:100,000 20 ML VIAL SQ ONE (09:45)
[2024-06-03] MEDS: LACTATED RINGERS 1,000 ML IV ONE (10:21)
--- NOTE | 2024-06-03 10:42 | P.OP ---
Date of Procedure: 06/03/24 Description of Procedure: SURGEON: REGI DIETZ MD PREOPERATIVE DIAGNOSES: 1. Diffuse abdominal pain 2. History of multiple abdominal surgeries 3. History of sleeve gastrectomy 4. Chronic pain syndrome 5. Morbid obesity excess calories, BMI 37.2 6. Hypothyroidism 7. Depressive disorder 8. Gastroesophageal reflux disease 9. Chronic back pain 10. Fibromyalgia 11. Psoriatic arthritis 12. Ankylosing spondylosis 13. Generalized anxiety disorder 14. History of panniculectomy POSTOPERATIVE DIAGNOSES: 1. Diffuse abdominal pain due to peritoneal adhesions 2. History of multiple abdominal surgeries 3. History of sleeve gastrectomy 4. Chronic pain syndrome 5. Morbid obesity excess calories, BMI 37.2 6. Hypothyroidism 7. Depressive disorder 8. Gastroesophageal reflux disease 9. Chronic back pain 10. Fibromyalgia 11. Psoriatic arthritis 12. Ankylosing spondylosis 13. Generalized anxiety disorder 14. History of panniculectomy OPERATION: 1. Robotic-assisted da Riley Xi laparoscopic with extensive lysis of adhesions over 30 minutes to 1 hour ESTIMATED BLOOD LOSS: 10 mL. SPECIMENS REMOVED: None. COMPLICATIONS: None. OPERATIVE FINDINGS: 1. No ventral hernias identified. 2. Adhesions along the epigastrium, right upper quarant including left upper quadrant 3. No small dilation or ileus INDICATIONS: The patient is a 35-year-old female who presents with acute on chronic abdominal pain, diffuse in nature. Surgical intervention with diagnostic laparoscopy, lysis of adhesions were described. Informed consent was obtained. Robotic assisted laparoscopic approach was described including appendectomy. Benefits and risks of the procedure including but not limited to bleeding, infection, injury to the small bowel was described. Informed consent was obtained. DESCRIPTION OF PROCEDURE: Pre-operatively, the abdomen was marked at location of pain consistent with right lower quadrant abdominal pain. Patient was brought to the operating room, placed in supine position. After general induction, the abdomen had been prepped and draped in standard sterile fashion. The robotic da Riley XI system was primed. After a timeout protocol was performed, the patient had been prepped and draped in standard sterile fashion. The robot was docked along the left lateral abdomen. The patient was repositioned in with right side up. Please note prior to docking of the robot; however, a 5 mm 0 degrees laparoscopic trocar entry was performed along the left upper quadrant. The abdomen was insufflated to 15 mmHg pressure which she tolerated well. Diagnostic laparoscopy was performed. Dense peritoneal adhesions greater omentum to anterior abdominal wall was found along the midline including the epigastrium, left upper quadrant and right upper quadrant. Next, 8 mm robotic ports were placed along the left lateral abdominal wall. A 8 mm port was placed along the left lower quadrant. Please note that the ports were placed at least 10 to 15 cm away from the target anatomy. The 5 mm trocar was exchanged for 8 mm trocar. Instruments including graspers, scissors, stapled and vessel sealer were interchanged by the assistant professor of theater. I had sat at the console. Attention was brought to the greater omental adhesions to the abdominal wall which was divided using sharp dissection using scissors with cautery. Lysis of adhesions for 30 to 60 minutes was performed. Hemostasis was checked. No evidence of small bowel pathology was found or small bowel dilation or ileus. The small bowel was viable. The robot was undocked. All pneumoperitoneum instruments were evacuated from the abdominal cavity. The incisions were reapproximated using 4-0 Monocryl in an interrupted subcuticular fashion. Please note along the trocar sites, local anesthetic was placed as a field block prior to insertion of all instruments. Exofin was applied to the skin. At the end of the procedure needle, sponge, and instrument count had been verified correct by the surgical orderly. The patient was transferred to postanesthesia care unit in stable condition. Plan - Discharge Summary Discharge Rx Participant: No New Discharge Prescriptions: New Simethicone [Gas-X] 125 mg PO AC-TID PRN #20 capsule PRN Reason: Pain Ibuprofen [Motrin] 600 mg PO Q8HR PRN #30 tab PRN Reason: Pain Acetaminophen Tab [Tylenol Tab] 1,000 mg PO Q6HR PRN #30 tablet PRN Reason: Pain Continue Vitamin D3 4500iu 4,500 unit PO DAILY Vitamin B Complex 1 cap PO DAILY Pantoprazole [Protonix] 40 mg PO DAILY Levothyroxine Sodium [Synthroid] 100 mcg PO DAILY Amitriptyline HCl [Elavil] 50 mg PO HS tiZANidine HCL [Zanaflex] 6 mg PO BID PRN PRN Reason: Pain Morphine Sulfate ER [Ms Contin] 30 mg PO HS Metoprolol Succinate [Toprol XL] 1 tab PO DAILY Ixekizumab [Taltz Autoinjector] 1 dose INJ QMONTHLY medroxyPROGESTERone [Depo-Provera] 150 mg IM QMONTHLY Pregabalin 100 mg PO BID buPROPion [Wellbutrin] 200 mg PO BID Ascorbic Acid [Vitamin C] 1,000 mg PO DAILY Morphine Sulfate ER [Ms Contin] 15 mg PO DAILY Sertraline [Zoloft] 150 mg PO DAILY Discharge Medication List Amitriptyline HCl [Elavil] 50 mg PO HS 03/16/17 [History] Levothyroxine Sodium [Synthroid] 100 mcg PO DAILY 03/16/17 [History] Morphine Sulfate ER [Ms Contin] 30 mg PO HS 03/16/17 [History] Pantoprazole [Protonix] 40 mg PO DAILY 03/16/17 [History] Vitamin B Complex 1 cap PO DAILY 03/16/17 [History] Vitamin D3 4500iu 4,500 unit PO DAILY 03/16/17 [History] tiZANidine HCL [Zanaflex] 6 mg PO BID PRN 03/16/17 [History] Ixekizumab [Taltz Autoinjector] 1 dose INJ QMONTHLY 08/12/21 [History] Metoprolol Succinate [Toprol XL] 1 tab PO DAILY 08/12/21 [History] Pregabalin 100 mg PO BID 08/12/21 [History] buPROPion [Wellbutrin] 200 mg PO BID 08/12/21 [History] Ascorbic Acid [Vitamin C] 1,000 mg PO DAILY 07/29/23 [History] medroxyPROGESTERone [Depo-Provera] 150 mg IM QMONTHLY 07/29/23 [History] Morphine Sulfate ER [Ms Contin] 15 mg PO DAILY 08/13/23 [History] Acetaminophen Tab [Tylenol Tab] 1,000 mg PO Q6HR PRN #30 tablet 06/03/24 [Rx] Ibuprofen [Motrin] 600 mg PO Q8HR PRN #30 tab 06/03/24 [Rx] Sertraline [Zoloft] 150 mg PO DAILY 06/03/24 [History] Simethicone [Gas-X] 125 mg PO AC-TID PRN #20 capsule 06/03/24 [Rx] [facility]Ref[facility] [place] [facility] - 06/08/24 3:00 pm Patient Instructions/Handouts: *Surgery [facility] - Scopalamine Patch Instructions Activity/Diet/Wound Care/Special Instructions: NO LONG DRIVES OR AIRPLANE RIDES OVER 60 MINUTES FOR THE NEXT 2 WEEKS, 06/17/24, DUE TO HIGH RISK OF PULMONARY EMBOLISM/DVTs May drive in 72 hrs, 06/06/24 No lifting over 10 pounds in 2 weeks until 06/17/24, May shower. No bath tub soaks for two weeks until 06/17/24, Diet as tolerated. Use Tylenol, simethicone and ibuprofen or Aleve scheduled for the next 24-48 hours for best pain relief. Use ice along incisions for today to prevent swelling. Discharge Disposition: HOME SELF-CARE
[2024-06-03 10:44] VITALS: TEMP 96.9
[2024-06-03 11:03] VITALS: RESP 16
--- NOTE | 2024-06-03 11:30 | P.ANPRN ---
Procedure Note - Anesthesia - Nerve Block Performed Bilateral Erector Spinae Single Time Out Performed: Yes Date of Procedure: 06/03/24 Procedure Start Time: 08:32 Procedure Stop Time: 08:37 Location of Patient: PreOp Indication: Acute Post-Operative Pain, Analgesia, Requested by Surgeon Sedation Type: Sedate with meaningful contact maintained Preparation: Sterile Prep Position: Prone Catheter: None Needle Types: Pajunk Needle Gauge: 21 Ultrasound used to visualize needle placement: Yes Ultrasound used to observe medication spread: Yes Injectate: 0.5% Ropivacaine (see comment for volume) (Ropiv 20ml+[id number],T needle level ---Each side.) Blood Aspirated: No Pain Paresthesia on Injection Noted: No Resistance on Injection: Normal Image Stored and Saved: Yes Events: Uneventful and Well Tolerated
[2024-06-03 11:35] VITALS: BP 117/79; PULSE 94
[2024-06-03] MEDS: IBUPROFEN 600 MG TAB PO STA (11:44)
== END 2024-06-03 12:05 | disposition home or self-care (01) ==
LOC: OR 07:26
PROVIDERS: ATTEND Surgery Plastic and Reconstructive Surgery
DX: K66.0 Peritoneal adhesions (postprocedural) (postinfection) (principal); K21.9 Gastro-esophageal reflux disease without esophagitis; E03.9 Hypothyroidism, unspecified; F32.A Depression, unspecified; M79.7 Fibromyalgia; L40.50 Arthropathic psoriasis, unspecified; I10 Essential (primary) hypertension; E07.9 Disorder of thyroid, unspecified; F41.1 Generalized anxiety disorder; J45.909 Unspecified asthma, uncomplicated; E66.01 Morbid (severe) obesity due to excess calories; M81.0 Age-related osteoporosis without current pathological fracture; Z68.37 Body mass index [BMI] 37.0-37.9, adult; Z98.84 Bariatric surgery status; Z90.49 Acquired absence of other specified parts of digestive tract; Z87.440 Personal history of urinary (tract) infections; Z87.442 Personal history of urinary calculi; Z83.3 Family history of diabetes mellitus; Z82.49 Family history of ischemic heart disease and other diseases of the circulatory system; Z83.49 Family history of other endocrine, nutritional and metabolic diseases; Z79.890 Hormone replacement therapy; Z88.0 Allergy status to penicillin; Z88.1 Allergy status to other antibiotic agents; Z79.3 Long term (current) use of hormonal contraceptives; Z79.899 Other long term (current) drug therapy
CPT/HCPCS: 44180; 64999; S2900; 81025

== ENCOUNTER → 2024-06-08 | Outpatient (CLI) | payer OTHER, MEDICARE ==
[2024-06-08 15:44] VITALS: BP 157/97; PULSE 62; RESP 16; TEMP 98.7; BMI 38.2
--- NOTE | 2024-06-08 16:19 | P.BASOAP ---
Subjective Progress Note Date: 06/08/24 Multiple studies performed. EGD, UGI, all still with reflux. Needs sleeve to bypass. Objective - Vital Signs Vital signs: Vital Signs Temp 98.7 F 06/08/24 15:38 Pulse 62 06/08/24 15:38 Resp 16 06/08/24 15:38 BP 157/97 06/08/24 15:38 Pulse Ox FiO2 Intake & Output 06/07/24 06/08/24 06/08/24 18:59 06:59 18:59 Weight 105.687 kg Assessment/Plan Plan: Date: 06/08/24 Initial Weight: 110.818 kg Initial BMI: 40.0 Current Weight: 105.687 kg Current BMI: 38.2 Type of Surgery: Total Volume in Band: Previous Volume: Volume Removed: Volume Added: Band Size:
== END ==
LOC: BARWHC3 14:53
PROVIDERS: ATTEND Surgery Plastic and Reconstructive Surgery
DX: E66.01 Morbid (severe) obesity due to excess calories (principal); Z68.38 Body mass index [BMI] 38.0-38.9, adult; Z88.0 Allergy status to penicillin; Z88.5 Allergy status to narcotic agent; Z88.1 Allergy status to other antibiotic agents
CPT/HCPCS: 99211